=== PATIENT | male | born 1940 | race Caucasian/White ===

== ENCOUNTER → 2022-05-04 | Outpatient (CLI) | payer MEDICARE, OTHER | END | disposition home or self-care (01) | LOC: LAB SHORT 15:01 → PLD 15:01 | DX: C44.622 Squamous cell carcinoma of skin of right upper limb, including shoulder (principal); D04.61 Carcinoma in situ of skin of right upper limb, including shoulder; D04.62 Carcinoma in situ of skin of left upper limb, including shoulder | CPT/HCPCS: 88305 ==

== ENCOUNTER 2022-07-05 09:26 | Day surgery (SDC) | payer MEDICARE, OTHER ==
[~2022-07-05] VITALS: Ht 177.8 cm; Wt 79.8 kg
--- NOTE | 2022-07-05 10:30 | NUR ---
07/05/22 1030 Nathaniel Almaguer CALL LIGHT WITHIN REACH. TETRACAINE AT 1025 IN THE RIGHT EYE AND PLEDGETT AT 1027
--- NOTE | 2022-07-05 12:19 | NUR ---
07/05/22 1219 Perez Irene PT STATES THAT HE CAN WALK HOME TO [facility], ONLY 1,000 YARDS AWAY. I HAD TROUBLE CONTACTING HIS WITH THE PH # HE GAVE US. LOOKED ON FACE SHEET AND WAS ABLE TO OBTAIN CORRECT PH #. INFORMED THAT HE WAS NOT ALLOWED TO DRIVE HIS TRUCK HOME. SHE STATES THAT SHE WASN'T AWARE THAT SHE HAD TO PICK HIM UP. PT DROVE HIMSELF TO FACILITY AND BECAME AGGITATED WHEN WE SPOKE TO HIM ABOUT NEEDING A RIDE HOME. MET OUT IN PARKING LOT. SHE ASSURED ME THAT HE WOULD NOT DRIVE HOME TODAY.
== END 2022-07-05 12:05 | disposition home or self-care (01) ==
LOC: ORSCSDS 09:26
PROVIDERS: Ophthalmology
PROC: 08RJ3JZ Replacement of Right Lens with Synthetic Substitute, Percutaneous Approach (ICD-10-PCS; principal; 2022-07-05 11:00)
DX: H25.11 Age-related nuclear cataract, right eye (principal); F17.210 Nicotine dependence, cigarettes, uncomplicated; J44.9 Chronic obstructive pulmonary disease, unspecified; K21.9 Gastro-esophageal reflux disease without esophagitis; Z79.899 Other long term (current) drug therapy
CPT/HCPCS: J2001; J2250; J3010; J3301; J7040; V2632

== ENCOUNTER 2022-07-21 09:43 | Day surgery (SDC) | payer MEDICARE, OTHER ==
[~2022-07-21] VITALS: Ht 177.8 cm; Wt 80.4 kg
[2022-07-21] MEDS ORDERED: OMEP20ER PO (10:11)
[2022-07-21] MEDS ORDERED: OXYC15ER PO (10:11)
--- NOTE | 2022-07-21 10:15 | NUR ---
07/21/22 1015 GLENROY PEARCE T: 1015 P:1016 CALL LIGHT WITHIN REACH, PT EDUCATED AND READY FOR OR
== END 2022-07-21 11:57 | disposition home or self-care (01) ==
LOC: ORSCSDS 09:43
PROVIDERS: Ophthalmology
PROC: 08RK3JZ Replacement of Left Lens with Synthetic Substitute, Percutaneous Approach (ICD-10-PCS; principal; 2022-07-21 11:00)
DX: H25.12 Age-related nuclear cataract, left eye (principal); Z96.1 Presence of intraocular lens; J44.9 Chronic obstructive pulmonary disease, unspecified; K21.9 Gastro-esophageal reflux disease without esophagitis; F17.210 Nicotine dependence, cigarettes, uncomplicated; Z79.899 Other long term (current) drug therapy
CPT/HCPCS: J2001; J2250; J3010; J3301; J7040; V2632